=== PATIENT | male | born 1995 | race Caucasian/White ===

== ENCOUNTER 2017-08-31 02:58 | Emergency (ER) | payer OTHER ==
[~2017-08-31] VITALS: Ht 172.7 cm; Wt 81.6 kg
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
--- NOTE | 2017-08-31 03:31 | NUR ---
PT RETURNED FROM CT.
--- NOTE | 2017-08-31 04:10 | NUR ---
Patient discharged under [employer] custody in stable condition. Written and verbal after care instructions given. Patient verbalizes understanding of instruction. ambulatory with a steady gait
[2017-08-31 06:56] VITALS: BP 128/86
== END 2017-08-31 04:10 | disposition home or self-care (01) ==
LOC: ER 02:59
DX: S40.012A Contusion of left shoulder, initial encounter (principal); S00.83XA Contusion of other part of head, initial encounter; S70.312A Abrasion, left thigh, initial encounter; S09.8XXA Other specified injuries of head, initial encounter; Y04.0XXA Assault by unarmed brawl or fight, initial encounter; Y93.89 Activity, other specified; Y92.89 Other specified places as the place of occurrence of the external cause; Y99.8 Other external cause status
CPT/HCPCS: 70450-TC; 70486-TC; A4606; Z7610